=== PATIENT | female | born 1935 | race Caucasian/White ===

== ENCOUNTER → 2023-07-16 10:46 | Outpatient (REF) | payer OTHER, SELFPAY | LOC: RAD 10:46 | PROVIDERS: ATTENDING PHYSICIAN Nuclear Medicine Nuclear Cardiology; FAMILY PHYSICIAN Family Medicine | DX: I21.9 Acute myocardial infarction, unspecified (principal); I25.10 Atherosclerotic heart disease of native coronary artery without angina pectoris; Z95.1 Presence of aortocoronary bypass graft; I73.9 Peripheral vascular disease, unspecified | CPT/HCPCS: 93922; 93925 ==

== ENCOUNTER 2024-02-06 19:25 | Emergency (ER) | payer OTHER, SELFPAY ==
[2024-02-06 19:28] VITALS: BP 195/88
[2024-02-06 19:51] VITALS: BP 181/84
--- NOTE | 2024-02-06 20:02 | ED.GENMED ---
History of Present Illness
General
Chief Complaint: Blood Pressure Problem
Time Seen by Provider: 02/06/24 19:38
History of Present Illness
History of Present Illness:
Patient is a 89-year-old woman with history of hypertension, hyperlipidemia, CAD presenting to the emergency department with elevated blood pressure. Patient states that around 6 PM she had an episode of vertigo. She took a meclizine which
resolved the vertigo. She then took her blood pressure during the episode and it was elevated in the 190s. She took it again and then increase to the 200s. It did not come down and around 7 PM about an hour prior to arrival to talk to her primary
care doctor who told him to come to the emergency department for further evaluation. Patient at this time feels completely back to her baseline. She states that the episode of vertigo was similar to her prior that resolved with meclizine. She has
been having some vague back discomfort and bilateral chest discomfort. She did go to her PCP and was found to have a compression fracture. The pain is not exertional. No shortness of breath. She also has been feeling more tired. She believes
that she is on multiple medications that would make her drowsy. On review of her medication list it does appear that she is on quite a few sedating medications. No numbness tingling. No dizziness. No back pain at this time.
Phy Exam
Physical Exam
Physical Exam:
GENERAL: in no acute distress
HEENT: normocephalic, extraocular movements intact, moist oral mucosa
NECK: normal inspection
Back: No midline spinal tenderness
RESPIRATORY: no respiratory distress, clear to auscultation bilaterally
CARDIOVASCULAR: regular rate and rhythm
ABDOMEN/: soft, non-distended, non-tender to palpation, no rebound or guarding
EXTREMITIES: non-tender, no edema/swelling
NEUROLOGIC: awake and alert, moves all extremities
SKIN: warm
Course
Orders/Labs/Results
Orders:
Orders
02/06/24 19:32
EKG [Electrocardiogram (*1)] Urgent
Reason for Study: Chest Pain
EKG- Treatment ONCE
02/06/24 20:31
Basic Metabolic Panel Urgent
Complete Blood Count/With Diff Urgent
Troponin I Urgent
Abnormal Lab Results
02/06/24
20:31
Monocytes % 9.8 H %
(1.7-9.3)
Potassium 5.2 H mmol/L
(3.5-5.1)
BUN 32 H mg/dl
(7-17)
Creatinine 1.1 H mg/dL
(0.6-1.0)
02/06/24 20:31
02/06/24 20:31
Vital Signs
Initial and Last Documented VS:
Initial Vital Signs
Temp Pulse Resp BP Pulse Ox
98 F 82 14 195/88 97
02/06/24 19:28 02/06/24 19:28 02/06/24 19:28 02/06/24 19:28 02/06/24 19:28
Last Documented Vital Signs
Temp Pulse Resp BP Pulse Ox
98 F 63 15 181/69 99
02/06/24 19:28 02/06/24 20:51 02/06/24 20:51 02/06/24 20:51 02/06/24 20:51
MDM/Problems Addressed
Differential Diagnosis Includes:
Patient is a 89-year-old woman with history of hypertension, hyperlipidemia, CAD, anxiety presenting to the emergency department with elevated blood pressure. Vitals here notable for blood pressure of 195/88 and exam is reassuring. At this time
her elevated blood pressure she is asymptomatic from. She does state that she was having worsening pain earlire today which certainly could cause her blood pressure to be elevated. She is only on metoprolol for her blood pressure. She does see
her gate cutter and PCP for monitoring as she did have history of orthostatic hypotension which is why she is not on an additional agent. She has been having vague back pain and chest pain. EKG per my interpretation with flattening of the lateral
T waves. There is no prior to compare to. Given the vague symptoms plus the EKG will check troponin. Given patient's fatigue will check anemia as well as electrolytes and kidney function. Patient was educated on discussing with her primary care
doctor about the multiple medications such as tramadol, Ativan, Seroquel and to see if they could be decreased given the excessive sleepiness during the daytime.
*Critical Care Note
Total Time (30-74mins, 75-104mins- exclusive of procedures): Not Applicable
Update Note
Update Note:
Blood work reassuring. Given that the pain has been ongoing for more than a day I do not need to obtain delta troponin. Patient advised to follow-up with PCP and cardiology. Will discharge at this time.
ED Attending Note
-
Portions of this chart may have been created with voice recognition software.� Occasional wrong word or��sound alike� substitutions may have occurred due to the inherent limitations of voice recognition software.
Discharge Plan
Departure
Patient Disposition: Home (Routine Discharge)
Date of Disposition: 02/06/24
Time of Disposition: 21:18
Patient with high blood pressure during this ER visit?: Yes
Discharge Problem:
Hypertension
Instructions: High Blood Pressure (DC)
Prescriptions:
No Action
quetiapine 25 MG tablet
25 mg PO HS
furosemide 40 MG tablet
40 mg PO DAILY PRN (Reason: swelling)
acetaminophen [Tylenol Extra Strength] 500 MG tablet
500 mg PO PRN PRN (Reason: pain)
calcium carbonate [Antacid (calcium carbonate)] 1 TABLET tablet,chewable
1 tab PO PRN PRN (Reason: heartburn)
metoprolol succinate 25 MG tablet extended release 24 hr
25 mg PO QPM
sertraline 50 MG tablet
50 mg PO DAILY
Gaviscon Es
1 tab PO PRN PRN (Reason: heartburn)
Vitamin B Complex With B12
1 tab PO DAILY
Vitamin D3
1 tab PO DAILY
Woman's Rogaine
1 applic topical BID
hydrocodone-acetaminophen [[place]] 1 EACH tablet
1 ea PO Q6HPRN PRN (Reason: pain) 10 Days Qty: 30 0RF
cephalexin [Keflex] 500 MG capsule
500 mg PO Q6 4 Days Qty: 16 0RF
lorazepam 0.5 MG tablet
0.5 mg PO Q8HPRN PRN (Reason: pain/spasm) Qty: 40 0RF
clopidogrel 75 MG tablet
75 mg PO DAILY Qty: 1 0RF
Rx Instructions:
RESUME 02/03
quetiapine [Seroquel] 25 mg Tablet
12.5 mg PO HS
atorvastatin 40 mg Tablet
40 mg PO HS
metoprolol succinate 50 mg Tablet Extended Release 24 Hr
50 mg PO DAILY
prochlorperazine maleate 5 mg Tablet
5 mg PO TID PRN (Reason: nausea/migraine)
meclizine 12.5 mg Tablet
12.5 mg PO TID PRN (Reason: dizziness)
famotidine 20 mg Tablet
20 mg PO BID
buspirone [BuSpar] 10 mg Tablet
10 mg PO BID
nitroglycerin 0.4 mg Tablet, Sublingual
0.4 mg SUBLINGUAL Q1HPRN PRN (Reason: chest pain)
furosemide [Lasix] 20 mg Tablet
20 mg PO PRN PRN (Reason: fluid retention)
sertraline 50 mg Tablet
50 mg PO DAILY
ezetimibe [Zetia] 10 mg Tablet
10 mg PO DAILY
ranolazine 500 mg Tablet Extended Release 12 Hr
500 mg PO BID
aspirin 81 mg Capsule
81 mg PO DAILY
tramadol 25 mg Tablet
12.5 mg PO PRN PRN (Reason: severe pain )
Referrals:
Sully Leija MD [Family Provider] -
Interventions
Interventions:
*Risk Screen - Suicide Last Done: 02/06/24 19:28
*General Assessment Last Done: 02/06/24 19:28
*Neglect/Abuse Screening Last Done: 02/06/24 19:28
ED- Cardiac Assessment Last Done: 02/06/24 20:34
ED- Neurological Assessment Last Done: 02/06/24 20:34
ED- Pulmonary Assessment Last Done: 02/06/24 20:34
Discharge Date and Time
Print Language: UKRAINIAN
[2024-02-06 20:37] LABS: % Basophils 0.4 % (0-2); % Eosinophils 0.9 % (0-6); % Immature Granulocytes 0.4 % (0-0.5); % Lymphocytes 30.9 % (20.5-51.1); % Monocytes 9.8 % (1.7-9.3); % Neutrophils 57.6 % (42.2-75.2); Absolute Eosinophils 0.1 10^3/uL (0-0.7); Absolute Lymphocytes 1.7 10^3/uL (1.2-3.4); Absolute Monocytes 0.5 10^3/uL (0.1-0.6); Absolute Neutrophils 3.2 10^3/uL (1.4-6.5); Hematocrit 38.6 % (37.0-47.0); Hemoglobin 12.9 g/dL (12.0-16.0); Mean Corp Hgb Conc. 33.4 g/dL (33.0-37.0); Mean Corpuscular Hgb 29.3 pg (27.0-31.0); Mean Corpuscular Volume 87.5 fL (81.0-99.0); Mean Platelet Volume 9.7 fL (7.4-10.4); Nucleated Red Blood Cells % 0 %; Platelet Count 219 10^3/uL (130-400); Red Blood Cell Count 4.41 10^6/uL (4.20-5.40); Red Cell Dist. Width 14.1 % (11.5-14.5); White Blood Cell Count 5.5 10^3/uL (4.8-10.8)
[2024-02-06 20:51] VITALS: BP 181/69
[2024-02-06 21:00] VITALS: BP 185/71
[2024-02-06 21:13] LABS: Blood Urea Nitrogen 32 mg/dl (7-17); Calcium 9.6 mg/dl (8.4-10.2); Carbon Dioxide 26 mmol/L (22-30); Chloride 99 mmol/L (98-107); Glucose 94 mg/dl (70-99); Potassium 5.2 mmol/L (3.5-5.1); Sodium 137 mmol/L (135-145); eGFR 48.63
[2024-02-06 21:15] LABS: Troponin I 0.021 ng/ml
== END 2024-02-06 21:33 | disposition home or self-care (01) ==
LOC: EMR 19:25
PROVIDERS: EMERGENCY PHYSICIAN Student in an Organized Health Care Education/Training Program; FAMILY PHYSICIAN Family Medicine
DX: I10 Essential (primary) hypertension (principal); R07.89 Other chest pain; R42 Dizziness and giddiness; M54.9 Dorsalgia, unspecified; R53.83 Other fatigue; E78.5 Hyperlipidemia, unspecified; I25.10 Atherosclerotic heart disease of native coronary artery without angina pectoris; F41.9 Anxiety disorder, unspecified; Z79.82 Long term (current) use of aspirin; Z79.899 Other long term (current) drug therapy; Z88.6 Allergy status to analgesic agent; Z91.041 Radiographic dye allergy status; Z91.040 Latex allergy status; Z88.8 Allergy status to other drugs, medicaments and biological substances; Z91.048 Other nonmedicinal substance allergy status
CPT/HCPCS: 99283; 80048; 84484; 85025; 93005

== ENCOUNTER → 2024-04-03 15:03 | Outpatient (REF) | payer OTHER, SELFPAY | LOC: RCS 15:03 | PROVIDERS: ATTENDING PHYSICIAN Nuclear Medicine Nuclear Cardiology; FAMILY PHYSICIAN Family Medicine | DX: I25.10 Atherosclerotic heart disease of native coronary artery without angina pectoris (principal) | CPT/HCPCS: 93306 ==

== ENCOUNTER 2024-07-05 07:29 | Inpatient (IN) | payer OTHER, SELFPAY ==
[2024-07-05] VITALS (13 sets, daily range): BP systolic 93–168; BP diastolic 45–78; PULSE 69–87; BMI 28.3
[2024-07-05] MEDS: ATIVAN 1 MG IV ×3 (04:58→05:45)
[2024-07-05 05:09] LABS: % Basophils 0.5 % (0-2); % Eosinophils 0.8 % (0-6); % Immature Granulocytes 0.5 % (0-0.5); % Lymphocytes 35.6 % (20.5-51.1); % Neutrophils 53.6 % (42.2-75.2); Absolute Eosinophils 0.1 10^3/uL (0-0.7); Absolute Lymphocytes 2.3 10^3/uL (1.2-3.4); Absolute Monocytes 0.6 10^3/uL (0.1-0.6); Absolute Neutrophils 3.5 10^3/uL (1.4-6.5); Hematocrit 38.3 % (37.0-47.0); Hemoglobin 12.4 g/dL (12.0-16.0); Mean Corp Hgb Conc. 32.4 g/dL (33.0-37.0); Mean Corpuscular Hgb 30.3 pg (27.0-31.0); Mean Corpuscular Volume 93.6 fL (81.0-99.0); Mean Platelet Volume 9.5 fL (7.4-10.4); Nucleated Red Blood Cells % 0 %; Platelet Count 213 10^3/uL (130-400); Red Blood Cell Count 4.09 10^6/uL (4.20-5.40); Red Cell Dist. Width 13.4 % (11.5-14.5); White Blood Cell Count 6.5 10^3/uL (4.8-10.8)
--- NOTE | 2024-07-05 05:14 | ED.GENMED ---
History of Present Illness
General
Chief Complaint: Change in Mental Status
Source: patient, family ( present at the bedside) and ambulance crew
Exam Limitations: altered mental status
Time Seen by Provider: 07/05/24 05:04
Nursing documentation reviewed up to this point in time: agreed with
History of Present Illness
History of Present Illness:
89-year-old female brought in from home by EMS for confusion. According to patient has been having a headache for 2 days. She had a Mohs procedure done earlier in the week and had a headache shortly thereafter. Last evening patient went
to bed having a headache much of the day. states she went to bed around 6 PM. He she awakened around 10 PM and gave her her medications. He had no indication at that point that she confused. Around 3 in the morning patient
awakened confused, patient thought she sounded like she was slurring her speech. He called 911. Patient does state that he has been to the emergency department with her many times for similar complaints. He states that they usually find nothing,
and diagnosed her with complicated migraine.
If applicable-neuro sx onset
Onset of symptoms known: No
Date of onset of symptoms: 07/05/24
Time of onset of symptoms: 00:00
Time pt last seen normal is known: Yes
Date last time pt seen normal: 07/04/24
Time last time pt seen normal: 22:00 (Per he gave her evening meds at 10 PM and she seemed normal. Next known contact, patient was confused around 4 in the morning. noticed some slurring)
Review of Systems
Review of Systems
Allergies reviewed?: Yes
Other source history: family
All Other Systems: ROS reviewed and negative except as documented in HPI and ROS
Constitutional: Reports no symptoms
EENT: Reports no symptoms
Respiratory: Reports no symptoms
Cardiac: Reports no symptoms
ABD/GI: Reports no symptoms
: Reports no symptoms
Musculoskeletal: Reports no symptoms
Skin: Reports no symptoms
Neurological: Reports headache
Endocrine: Reports no symptoms
Hematologic/Lymphatic: Reports no symptoms
Psychiatric: Reports anxiety
Phy Exam
General Physical Exam
General Presentation: moderate distress
General age: appears older than age
General Skin: warm and dry
General Habitus: normal
General Mental: anxious and confused
General Hydration: appears well hydrated
Cardiovascular Exam
Cardiovascular Exam: regular rate/rhythm
Pulmonary Exam
Pulmonary Exam: lungs clear and no respiratory distress
Neurological Exam
Neurological Exam: no motor deficits, slurred speech and other (Confusion)
Skin Exam
Skin Exam: normal color and warm/dry
Psychiatric Exam
Psychiatric Exam: normal mood/affect and agitated
Course
Orders/Labs/Results
Orders:
Orders
07/05/24 04:55
Complete Blood Count/With Diff Urgent
Comprehensive Metabolic Panel Urgent
Lipase Urgent
07/05/24 04:56
Lorazepam [Ativan] 2 mg .ROUTE .STK-MED ONE
07/05/24 04:58
Lorazepam [Ativan] 1 mg IV NOW STA
07/05/24 05:11
Abdomen/Pelvis wo Contrast CT [CT Abd/pelvis Wo Iv Cont] Urgent
Comment:
Reason For Exam: flank pain
CT HEAD STROKE ALERT W/o Cont Urgent
Comment:
Reason For Exam: confusion
07/05/24 05:21
Lorazepam [Ativan] 2 mg .ROUTE .STK-MED ONE
07/05/24 05:25
Lorazepam [Ativan] 1 mg IV NOW STA
Morphine Sulfate 4 mg .ROUTE .STK-MED ONE
07/05/24 05:32
Lorazepam [Ativan] 1 mg IV NOW STA
07/05/24 05:46
Morphine Sulfate 4 mg IV NOW STA
07/05/24 06:50
Admit/Transfer Patient As Directed
Co-Sign Provider:
Level of Care: Inpatient admission
Assign to:: Telemetry
Physician / Group: Bryce
Diagnosis: Altered Mental Status, Complicated Migraine, CBD Stones
Reason for Telemetry: CVA/TIA
Date to Stop Telemetry: 07/08/24
Time to Stop Telemetry: 11:00
Reason for Hospitalization: Altered Mental Status, Complicated Migraine, CBD Stones
Expected length of stay greater than two midnights?: Yes
ELOS- Estimated Length of Stay in days: 3
I certify the patient meets the requirements for IP care: Yes
PRN Pain Medication Management As Directed
May give lesser potent ordered pain med per pt: Yes
preference::
Protocol:: Medication orders for pain may be administered in a
manner that supports deferring to patient preference
when the pt is:
- Requesting an ordered lesser potent pain medication.
Least to most potent pain medications are defined
as: acetaminophen < NSAID < tramadol < opioids
(morphine, oxycodone, hydromorphone).
- Requesting a lesser dose of the same medication IF
ORDERED.
- Requesting a less intrusive route of administration
if both routes are prescribed by the provider (PO <
IV).
07/05/24 06:54
Code Status As Directed
Resuscitation Status: Full Code
07/08/24 11:00
DC Protocol for Telemetry ONCE
Abnormal Lab Results
07/05/24
04:55
RBC 4.09 L 10^6/uL
(4.20-5.40)
MCHC 32.4 L g/dL
(33.0-37.0)
BUN 27 H mg/dl
(7-17)
Creatinine 1.2 H mg/dL
(0.6-1.0)
Glucose 102 H mg/dl
(70-99)
07/05/24 04:55
07/05/24 04:55
Vital Signs
Initial and Last Documented VS:
Initial Vital Signs
Temp Pulse Resp Pulse Ox
98.6 F 86 18 97
07/05/24 04:33 07/05/24 04:33 07/05/24 04:33 07/05/24 04:33
Last Documented Vital Signs
Temp Pulse Resp BP Pulse Ox
98.6 F 72 19 140/54 96
07/05/24 04:33 07/05/24 06:00 07/05/24 06:00 07/05/24 06:00 07/05/24 05:45
*Pulse Oximetry
Patient hypoxic: no
*Critical Care Note
Total Time (30-74mins, 75-104mins- exclusive of procedures): 30
comment:
Critical care statement: A total of 30 minutes of critical care time was provided for this patient. This time is separate from time utilized to perform the aforementioned documented procedures. Aggregate critical care time includes only time
during which I was engaged in work directly related to the patient's care, as described above, whether at the bedside or elsewhere in the Emergency Department.
ED Attending Note
-
Portions of this chart may have been created with voice recognition software.� Occasional wrong word or��sound alike� substitutions may have occurred due to the inherent limitations of voice recognition software.
Discharge Plan
Departure
Patient Disposition: Admit
Date of Disposition: 07/05/24
Time of Disposition: 07:19
Admit to: Telemetry
Presentation/result/management discussed w/ accepting MD/DO: Hospitalist
Patient with high blood pressure during this ER visit?: Yes
Condition: Good
Discharge Problem:
Altered mental status, Migraine, Postoperative Mohs
Prescriptions:
No Action
quetiapine 25 MG tablet
25 mg PO HS
furosemide 40 MG tablet
40 mg PO DAILY PRN (Reason: swelling)
acetaminophen [Tylenol Extra Strength] 500 MG tablet
500 mg PO PRN PRN (Reason: pain)
calcium carbonate [Antacid (calcium carbonate)] 1 TABLET tablet,chewable
1 tab PO PRN PRN (Reason: heartburn)
metoprolol succinate 25 MG tablet extended release 24 hr
25 mg PO QPM
sertraline 50 MG tablet
50 mg PO DAILY
Gaviscon Es
1 tab PO PRN PRN (Reason: heartburn)
Vitamin B Complex With B12
1 tab PO DAILY
Vitamin D3
1 tab PO DAILY
Woman's Rogaine
1 applic topical BID
hydrocodone-acetaminophen [[place]] 1 EACH tablet
1 ea PO Q6HPRN PRN (Reason: pain) 10 Days Qty: 30 0RF
cephalexin [Keflex] 500 MG capsule
500 mg PO Q6 4 Days Qty: 16 0RF
lorazepam 0.5 MG tablet
0.5 mg PO Q8HPRN PRN (Reason: pain/spasm) Qty: 40 0RF
clopidogrel 75 MG tablet
75 mg PO DAILY Qty: 1 0RF
Rx Instructions:
RESUME 02/03
quetiapine [Seroquel] 25 mg Tablet
12.5 mg PO HS
atorvastatin 40 mg Tablet
40 mg PO HS
metoprolol succinate 50 mg Tablet Extended Release 24 Hr
50 mg PO DAILY
prochlorperazine maleate 5 mg Tablet
5 mg PO TID PRN (Reason: nausea/migraine)
meclizine 12.5 mg Tablet
12.5 mg PO TID PRN (Reason: dizziness)
famotidine 20 mg Tablet
20 mg PO BID
buspirone [BuSpar] 10 mg Tablet
10 mg PO BID
nitroglycerin 0.4 mg Tablet, Sublingual
0.4 mg SUBLINGUAL Q1HPRN PRN (Reason: chest pain)
furosemide [Lasix] 20 mg Tablet
20 mg PO PRN PRN (Reason: fluid retention)
sertraline 50 mg Tablet
50 mg PO DAILY
ezetimibe [Zetia] 10 mg Tablet
10 mg PO DAILY
ranolazine 500 mg Tablet Extended Release 12 Hr
500 mg PO BID
aspirin 81 mg Capsule
81 mg PO DAILY
tramadol 25 mg Tablet
12.5 mg PO PRN PRN (Reason: severe pain )
Referrals:
UNKNOWN - PT DOES,NOT KNOW [Family Provider] -
Interventions
Interventions:
*Risk Screen - Suicide Last Done: 07/05/24 04:44
*General Assessment Last Done: 07/05/24 04:33
*Neglect/Abuse Screening Last Done: 07/05/24 04:33
*ED COVID-19 Vaccine History Last Done: 07/05/24 04:33
ED- Neurological Assessment Last Done: 07/05/24 05:12
ED Swallowing Screen Last Done: 07/05/24 05:12
Discharge Date and Time
Print Language: GERMAN
[2024-07-05 05:42] LABS: ALT (SGPT) 24 U/L (0-35); AST (SGOT) 34 U/L (14-36); Albumin 4.1 g/dl (3.5-5.0); Alkaline Phosphatase 86 U/L (38-126); Blood Urea Nitrogen 27 mg/dl (7-17); Calcium 9.5 mg/dl (8.4-10.2); Carbon Dioxide 26 mmol/L (22-30); Chloride 101 mmol/L (98-107); Estimated Creatinine Clearance 30 ml/min; Glucose 102 mg/dl (70-99); Lipase 82 U/L (23-300); Sodium 135 mmol/L (135-145); Total Bilirubin 1.3 mg/dl (0.2-1.3); Total Protein 6.8 g/dl (6.3-8.2); eGFR 43.81
[2024-07-05] MEDS: MORPHINE SULFATE 4 MG IV (05:46)
--- NOTE | 2024-07-05 06:58 | HPS.HSE ---
Family Physician
-
Family Physician: NOT KNOW UNKNOWN - PT DOES
Chief Complaint
-
Slurred speech / confusion
History of Present Illness
Patient is an 89y F with PMH significant for ASCVD, hypertension and complex migraines who presents to ED for evaluation of slurred speech, confusion and 'discomfort'. History obtained entirely from at the bedside as patient is currently
sleeping / sedate following pain medication.
states that patient developed her typical migraine on Wednesday AM. This consists of headache, vision changes and slurred / sluggish speech.
She underwent L cheek Mohs surgery on Wednesday afternoon. There was bleeding from this site late Wednesday and they were in the ED at [facility] all night Wednesday into Wednesday for hemostasis (additional sutures placed).
states that patient slept for most of the day today. She woke around 11AM and then went back to bed around 6PM.
He woke her at 10PM to given her PM medications and she was speaking normally / seemed at baseline at that time.
Around 4AM today, woke to patient thrashing around in the bed. He notes that she seemed to be in pain - though he could not determine location of the discomfort. Patient again had slurred, incomprehensible speech and seemed confused.
They presented to the ED for further evaluation.
Patient received morphine in the ED with improvement in her discomfort and was sleeping comfortably at the time of my examination.
Medical History
Past Medical History
Past Medical History: Reports Other
Additional Past Medical History:
ASCVD
Complex Migraines
Hypertension
CKD III
Lung Cancer s/p Surgery, Chemo, XRT
Skin Cancer
Past Surgical History: Reports Other
Additional Past Surgical History:
Left Upper Lobectomy
CABG X 3
Mohs Surgery
Cholecystectomy
Lumbar Hemilaminectomy
Social History
Tobacco: Former Smoker (Quit smoking in her 50s. Approx 20 pack years total use.)
Alcohol: None
Drug: None
Family History
Family History: Not pertinent
Allergies / Home Medications
Allergies reflects when Allergies were last updated in [facility].
Home Medications with original date entered in [facility]
Allergy/Medication List:
cannot confirm all meds at present. Will need formal med rec with pharmacy in the AM.
If medication reconciliation has not been performed, why?: Medication List N/A
Review of Systems
-
History Source: Patient
A 12 point ROS was completed and negative except as noted: Yes
Constitutional: Reports Fatigue; Denies Fever or Chills
Respiratory: Denies Cough or Trouble Breathing
Cardiac: Denies Chest Pain or Palpitations
Abdomen/GI: Reports Abdominal Pain; Denies Nausea, Vomiting or Diarrhea
: Denies Flank Pain or Bleeding
Musculoskeletal: Reports Edema (chronic / unchanged)
Neurological: Reports Headache and Other (slurred speech); Denies Dizzy
Psych: Reports Anxiety; Denies Depression
Physical Exam
Vital Signs
Vital Signs
Temp Pulse Resp BP Pulse Ox
98.6 F 72 19 140/54 96
07/05/24 04:33 07/05/24 06:00 07/05/24 06:00 07/05/24 06:00 07/05/24 05:45
Physical Exam
General: Other (89y F currently sleeping comfortably.)
HEENT: Moist mucous membranes and PERRLA
Respiratory: Clear; No Wheezes, Rales or Rhonchi
Cardiac: S1/S2, Regular Rhythm and Murmur (II/ JOI)
GI: Soft, Non Distended, Normal Bowel Sounds and Other (Pos tenderness epigastric and RUQ areas. No rebound. Pos BS.)
Musculoskeletal: No Clubbing, No Cyanosis and Other (R > L LE edema.)
Laboratory Results
-
07/05/24 04:55
07/05/24 04:55
Laboratory Results
Total Bilirubin 1.3 mg/dl (0.2-1.3) 07/05/24 04:55
AST 34 U/L (14-36) 07/05/24 04:55
ALT 24 U/L (0-35) 07/05/24 04:55
Alkaline Phosphatase 86 U/L (38-126) 07/05/24 04:55
Lipase 82 U/L (23-300) 07/05/24 04:55
Impression/Plan
-
A/P: Patient is an 89y F with PMH significant for complicated migraine, ASCVD and prior cholecystectomy who presents to ED for evaluation of speech abnormality, confusion and distress.
CVA / TIA v Complicated Migraine
- Admit for further evaluation and treatment.
- Multiple prior episodes per all determined to be due to migraine.
- Suspect that this is similar - potentially triggered by GI symptoms (see below).
- Follow neurologic exam for any changes / focality.
- PT / OT / Speech evaluations.
- Neurology consult.
- MRI brain this AM.
- Follow for any new / worsening symptoms.
- Continue current med regimen for ASCVD including DAPT, etc.
CBD Stones / Sludge
- CT A/P done in the ED shows evidence of stones / sludge layering in the CBD.
- LFTs are unremarkable. Afebrile / non-toxic.
- notes about 3-4 weeks of intermittent R-sided abdominal pain complaints.
- No N/V. No stool changes.
- MRCP for further evaluation.
- GI consult for additional recommendations.
ASCVD
Benign Hypertension
- Stable. No chest pain or dyspnea reported.
- BP elevated on initial arrival - likely due to pain - much better after pain control / morphine.
- Continue current CV med regimen including DAPT, etc.
CKD III
- Stable. Renal function at / near known baseline.
- Follow for any changes.
Anxiety / Depression
- Stable. Continue current medications - adjust as needed once formal med rec completed.
DVT Prophylaxis: SCDs
Code Status: Full
[2024-07-05 11:20] LABS: TSH Reflex To Free T4 4.91 uIU/ml (0.47-4.68)
[2024-07-05] MEDS: ASPIR LOW (ENTERIC COATED) 81 MG PO (11:39)
[2024-07-05] MEDS: ZOLOFT 100 MG PO (11:39)
[2024-07-05] MEDS: BUSPAR 10 MG PO ×2 (11:39→19:49)
[2024-07-05] MEDS: PLAVIX 75 MG PO (11:39)
[2024-07-05] MEDS: RANEXA EXTENDED RELEASE 500 MG PO ×2 (11:39→19:49)
[2024-07-05] MEDS: TOPROL XL 50 MG PO (11:41)
[2024-07-05 11:47] LABS: Free T4 1.11 ng/dl (0.78-2.19); Glycohemoglobin (HgbA1c) 5.5 % (4.0-5.6)
--- NOTE | 2024-07-05 13:01 | PTOTSP ---
Dysphagia Evaluation
Patient is at an acute elevated risk for dysphagia and aspiration given lethargy related to recent medications and changes to mentation of unknown etiology. Patient endorsed some mild chronic signs of dysphagia without signs concerning for
aspiration complication prior to admission. Consider diet below only when awake/alert.
Recommend:
1. Regular solids, Thin Liquids via SINGLE sips - when medically cleared (currently on clear liquid diet)
2. Strategies: PO only when awake/alert, upright to 90 degrees, full supervision and assistance, small single sips/bites, slow rate
3. Medications whole in puree (baseline method)
4. Oral care 3x daily
5. Dysphagia tx at the acute care level for education, instruction in compensations, and to determine if instrumental swallowing assessment warranted
6. Speech/language/cognitive evaluation as appropriate pending results of neurological work up (i.e., differential dx of CVA vs TIA vs complex migraine)
--- NOTE | 2024-07-05 13:48 | CON.NEURO ---
Neuro Assessment/Plan
Assessment
most likely confusion and slurred speech due to abdominal discomfort
doubt stroke, she is already on ASA 81, Plavix 75, and Lipitor 40.
Even if she did have a stroke, she should still continue these same meds
Plan
cancel brain MRI
Consultation
Order
Date of Consultation: 07/05/24
Requesting Provider: Colby Wu
Reason for Consult: confusion, lethargy
Subjective/Objective
Subjective Data
Date of Service: July 05, 2024
From H&P:
Patient is an 89y F with PMH significant for ASCVD, hypertension and complex migraines who presents to ED for evaluation of slurred speech, confusion and 'discomfort'. History obtained entirely from at the bedside as patient is currently
sleeping / sedate following pain medication.
states that patient developed her typical migraine on Wednesday AM. This consists of headache, vision changes and slurred / sluggish speech.
She underwent L cheek Mohs surgery on Wednesday afternoon. There was bleeding from this site late Wednesday and they were in the ED at [facility] all night Wednesday into Wednesday for hemostasis (additional sutures placed).
states that patient slept for most of the day today. She woke around 11AM and then went back to bed around 6PM.
He woke her at 10PM to given her PM medications and she was speaking normally / seemed at baseline at that time.
Around 4AM today, woke to patient thrashing around in the bed. He notes that she seemed to be in pain - though he could not determine location of the discomfort. Patient again had slurred, incomprehensible speech and seemed confused.
They presented to the ED for further evaluation.
Patient received morphine in the ED with improvement in her discomfort and was sleeping comfortably at the time of my examination.
Found to have gallstones, sludge layering in the CBD
to me, she is sleeping lightly, and awakens easily to voice, denies having headache, correctly told me her age, and went back to sleep.
Objective Data
Vital Signs
Temp Pulse Resp BP Pulse Ox
37.0 C 67 16 139/51 96
07/05/24 04:33 07/05/24 13:15 07/05/24 13:15 07/05/24 13:00 07/05/24 13:15
Lab Results
07/05/24 04:55
07/05/24 04:55
Sodium 135 mmol/L (135-145) 07/05/24 04:55
Potassium 5.0 mmol/L (3.5-5.1) 07/05/24 04:55
BUN 27 mg/dl (7-17) H 07/05/24 04:55
Glucose 102 mg/dl (70-99) H 07/05/24 04:55
Calcium 9.5 mg/dl (8.4-10.2) 07/05/24 04:55
Patient Allergies
adhesive tape Allergy (Verified 02/01/19 08:02)
Rash
aspirin Allergy (Verified 02/01/19 08:02)
Stomach burning
esomeprazole [From Nexium] Allergy (Verified 02/01/19 08:02)
Unknown
gabapentin Allergy (Verified 02/01/19 08:02)
Stroke-like symptoms
Iodinated Contrast Media Allergy (Verified 02/01/19 08:02)
Stroke-like symptoms
nitrofurantoin Allergy (Verified 02/01/19 08:02)
Unknown
nitroglycerin Allergy (Verified 02/01/19 08:02)
Stroke-like symptoms
latex Allergy (Uncoded 02/01/19 08:02)
Rash
Physical Exam
-
lethargic, awakens easily to voice
correctly tells me her age and moves all extremities then drifts back to sleep
Medications
-
Active Medications
Generic Name Dose Route Start Last Admin
Trade Name Freq PRN Reason Stop Dose Admin
Acetaminophen 650 mg 07/05/24 10:04
Acetaminophen 325 Mg Tablet PO 08/02/24 10:03
Q4HPRN PRN
Mild Pain / Temp > 101
Aspirin 81 mg 07/05/24 12:00 07/05/24 11:39
Aspirin 81 Mg (Enteric Coated) Tablet PO 08/02/24 11:59 81 mg
DAILY JENNIFER Administration
Buspirone HCl 10 mg 07/05/24 10:04 07/05/24 11:39
Buspirone 10 Mg Tablet PO 08/02/24 10:03 10 mg
BID JENNIFER Administration
Clopidogrel Bisulfate 75 mg 07/05/24 10:04 07/05/24 11:39
Clopidogrel 75 Mg Tablet PO 08/02/24 10:03 75 mg
DAILY JENNIFER Administration
Metoprolol Succinate 50 mg 07/05/24 10:04 07/05/24 11:41
Metoprolol 50 Mg Extended Release Tablet PO 08/02/24 10:03 50 mg
DAILY JENNIFER Administration
Quetiapine Fumarate 12.5 mg 07/05/24 22:00
Quetiapine 25 Mg Tablet PO 08/02/24 21:59
HS JENNIFER
Ranolazine 500 mg 07/05/24 10:04 07/05/24 11:39
Ranolazine 500 Mg Extended Release Tablet PO 08/02/24 10:03 500 mg
BID JENNIFER Administration
Sertraline HCl 100 mg 07/05/24 12:00 07/05/24 11:39
Sertraline 100 Mg Tablet PO 08/02/24 11:59 100 mg
DAILY JENNIFER Administration
Home Medications
�Medication �Instructions �Recorded
acetaminophen 500 mg tablet 500 mg PO BID 01/27/19
(Tylenol Extra Strength)
quetiapine 25 mg tablet 25 mg PO HS 01/27/19
clopidogrel 75 mg tablet 75 mg PO DAILY #1 tab 02/02/19
atorvastatin 40 mg tablet 40 mg PO QPM 02/06/24
buspirone 10 mg tablet 10 mg PO BID 02/06/24
ezetimibe 10 mg tablet (Zetia) 10 mg PO QPM 02/06/24
famotidine 20 mg tablet 20 mg PO BID 02/06/24
furosemide 20 mg tablet (Lasix) 20 mg PO DAILYPRN PRN fluid 02/06/24
retention
nitroglycerin 0.4 mg sublingual 0.4 mg sublingual [id number] PRN 02/06/24
tablet chest pain
prochlorperazine maleate 5 mg 5 mg PO TIDPRN PRN nausea/migraine 02/06/24
tablet
ranolazine 500 mg tablet,extended 500 mg PO BID 02/06/24
release,12 hr
aluminum hydrox-magnesium carb 95 15 ml PO DAILYPRN PRN heart burn/ 07/05/24
mg-358 mg/15 mL oral suspension acid reflux
amlodipine 5 mg tablet 2.5 mg PO DAILY 07/05/24
aspirin 81 mg tablet,delayed 81 mg PO DAILY 07/05/24
release
cholecalciferol (vitamin D3) 25 25 mcg PO DAILY 07/05/24
mcg (1,000 unit) tablet (Vitamin
D3)
metoprolol succinate 50 mg 50 mg PO HS 07/05/24
tablet,extended release 24 hr
tramadol 50 mg tablet 25 mg PO HSPRN PRN moderate 07/05/24
pain/sleep
vitamin B complex 1 tab PO DAILY 07/05/24
--- NOTE | 2024-07-05 13:56 | CON.GI ---
Consultation
-
Date/Time Consultation Requested: 07/05/24
Date/Time Consultation Performed: 07/05/24
Requesting Provider: Dr. Bowman
Performing Provider: Dr. Schreiber
Reason for Consultation: Bile duct dilation, r/o choledocholithiasis
Medical History
Chief Complaint / HPI
Chief Complaint: R. sided abdominal pain
History of Present Illness:
Mimi Rubalcava is an 89-year-old female with past medical history of complex migraines, hypertension, CKD stage III, lung cancer status post lobectomy, chemo and radiation therapy, hx cholecystectomy (1994), history of right L4-L5 hemilaminectomy,
history of TIA admitted early this morning with concern for acute CVA as she was exhibiting slurred speech and confusion as well as intermittent right flank discomfort over the last few weeks. Reports pain is worse after eating, improves with bowel
movement. Admits to constipation-- admitted to [facility] in March for carotid endarterectomy, states she didnt have a BM for 10 days. After d/c, she has continued to be constipated. Her has been giving her colace, has not tried laxatives. Last
BM was 2 days ago. Admits to some nausea, no vomiting, weight and appetite have remained stable. Denies melena or hematochezia. Reports prior EGDs and Colonoscopies at [facility], does not recall any of the results. She does have a history of complex
migraines, has been reported she developed typical migraine symptoms on Wednesday with headache, vision changes and slurred speech. Around 4 AM this morning patient was thrashing around in bed and appeared to be in pain but unable to localize pain.
Both and grandson at bedside assisting with history.
CT abdomen and pelvis without contrast: Surgically absent gallbladder with mild extrahepatic biliary ductal dilatation, most likely the sequelae of prior cholecystectomy, however, a few tiny stones layering dependently in the common bile duct are
possible. Markedly limited evaluation of the intestinal tract without contrast. Sigmoid diverticulosis. Unable to definitively rule out choledocholithiasis.
Labs: WBC 6.5, hemoglobin 12.4, platelets 213, BUN 27, creatinine 1.2, T. bili 1.3, AST 34, ALT 24, alk phos 86, lipase 82, TSH 4.91, free T41.11
Past Medical History
Past Medical History: Other (ASCVD Complex Migraines Hypertension CKD III Lung Cancer s/p Surgery, Chemo, XRT Skin Cancer)
Past Surgical History: Other (Left Upper Lobectomy CABG X 3 Mohs Surgery Cholecystectomy Lumbar Hemilaminectomy)
Social History
Tobacco: Former Smoker
Alcohol: None
Drug: None
Personal:
Living: With Family
Employment: Not Employed
Family History
Family History: Reviewed & Not Pertinent
Allergies / Home Medications
Allergy/AdvReac Type Severity Reaction Status Date / Time
adhesive tape Allergy Rash Verified 02/01/19 08:02
aspirin Allergy Stomach Verified 02/01/19 08:02
burning
esomeprazole [From Nexium] Allergy Unknown Verified 02/01/19 08:02
gabapentin Allergy Stroke-like Verified 02/01/19 08:02
symptoms
Iodinated Contrast Media Allergy Stroke-like Verified 02/01/19 08:02
symptoms
nitrofurantoin Allergy Unknown Verified 02/01/19 08:02
nitroglycerin Allergy Stroke-like Verified 02/01/19 08:02
symptoms
latex Allergy Rash Uncoded 02/01/19 08:02
�Medication �Instructions �Recorded
acetaminophen 500 mg tablet 500 mg PO BID 01/27/19
(Tylenol Extra Strength)
quetiapine 25 mg tablet 25 mg PO HS 01/27/19
clopidogrel 75 mg tablet 75 mg PO DAILY #1 tab 02/02/19
atorvastatin 40 mg tablet 40 mg PO QPM 02/06/24
buspirone 10 mg tablet 10 mg PO BID 02/06/24
ezetimibe 10 mg tablet (Zetia) 10 mg PO QPM 02/06/24
famotidine 20 mg tablet 20 mg PO BID 02/06/24
furosemide 20 mg tablet (Lasix) 20 mg PO DAILYPRN PRN fluid 02/06/24
retention
nitroglycerin 0.4 mg sublingual 0.4 mg sublingual [id number] PRN 02/06/24
tablet chest pain
prochlorperazine maleate 5 mg 5 mg PO TIDPRN PRN nausea/migraine 02/06/24
tablet
ranolazine 500 mg tablet,extended 500 mg PO BID 02/06/24
release,12 hr
aluminum hydrox-magnesium carb 95 15 ml PO DAILYPRN PRN heart burn/ 07/05/24
mg-358 mg/15 mL oral suspension acid reflux
amlodipine 5 mg tablet 2.5 mg PO DAILY 07/05/24
aspirin 81 mg tablet,delayed 81 mg PO DAILY 07/05/24
release
cholecalciferol (vitamin D3) 25 25 mcg PO DAILY 07/05/24
mcg (1,000 unit) tablet (Vitamin
D3)
metoprolol succinate 50 mg 50 mg PO HS 07/05/24
tablet,extended release 24 hr
tramadol 50 mg tablet 25 mg PO HSPRN PRN moderate 07/05/24
pain/sleep
vitamin B complex 1 tab PO DAILY 07/05/24
Review of Systems
-
History Source: Patient and Family
All other systems: A 12 pt ROS was Negative except as stated above in HPI
Vital Signs
Temp Pulse Resp BP Pulse Ox
98.6 F 67 16 139/51 96
07/05/24 04:33 07/05/24 13:15 07/05/24 13:15 07/05/24 13:00 07/05/24 13:15
Physical Exam
Exam
GENERAL: In no acute distress, appears comfortable
ABDOMEN: +BS; soft, non-tender and non-distended; no rebound or guarding
Results
WBC 6.5 10^3/uL (4.8-10.8) 07/05/24 04:55
Hgb 12.4 g/dL (12.0-16.0) 07/05/24 04:55
Hct 38.3 % (37.0-47.0) 07/05/24 04:55
MCV 93.6 fL (81.0-99.0) 07/05/24 04:55
Plt Count 213 10^3/uL (130-400) 07/05/24 04:55
Absolute Neuts (auto) 3.5 10^3/uL (1.4-6.5) 07/05/24 04:55
Sodium 135 mmol/L (135-145) 07/05/24 04:55
Potassium 5.0 mmol/L (3.5-5.1) 07/05/24 04:55
Chloride 101 mmol/L (98-107) 07/05/24 04:55
Carbon Dioxide 26 mmol/L (22-30) 07/05/24 04:55
BUN 27 mg/dl (7-17) H 07/05/24 04:55
Creatinine 1.2 mg/dL (0.6-1.0) H 07/05/24 04:55
Calcium 9.5 mg/dl (8.4-10.2) 07/05/24 04:55
Total Bilirubin 1.3 mg/dl (0.2-1.3) 07/05/24 04:55
AST 34 U/L (14-36) 07/05/24 04:55
ALT 24 U/L (0-35) 07/05/24 04:55
Alkaline Phosphatase 86 U/L (38-126) 07/05/24 04:55
Lipase 82 U/L (23-300) 07/05/24 04:55
Diagnostic Image Results:
Prior GI Procedures:
EGD:
Colonoscopy:
Assessment / Plan
-
89-year-old female with past medical history of complex migraines, hypertension, CKD stage III, lung cancer status post lobectomy, chemo and radiation therapy, hx cholecystectomy (1994), history of right L4-L5 hemilaminectomy, history of TIA, hx of
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
#RUQ Abdominal Pain
#Extrahepatic biliary ductal dilation
#s/p cholecystectomy
#Constipation
Lack of IV contrast on imaging, making it a somewhat limited exam. Given completely normal LFTs, suspect her mild extrahepatic biliary ductal dilation is normal/expected in setting of prior cholecystectomy and less likely representing
choledocholithiasis. Her intermittent abdominal pain is worse following PO, but improves with defecation. She endorses constipation since hospitalization in March. On further assessment, the pain does sometimes travel to her left side, leading me
to believe the etiology of her discomfort is more likely gas/air trapping in the setting of large stool burden.
Recommendations:
-MRCP to further evaluate biliary tree
-repeat LFTs tomorrow to ensure no increase
-Start bowel regimen-- recommend starting with 2 senokot tonight, can add miralax and uptitrate as necessary if no BM by tomorrow
-trial of Gas-x
Data Reviewed
-
CT Scan: Report Reviewed by me
-
-
Thank you for consultation and allowing me to participate in the patient's care. Please call the supervisor special education GI physician during the after hours with any questions or concerns.
--- NOTE | 2024-07-05 14:14 | W.PN.UPDATE ---
Update Note
Progress Note Update
can hold mri brain as per neuro
f/u mrcp and ua
--- NOTE | 2024-07-05 16:00 | PTCARENOTE ---
Pt received from ED and pulled over from stretcher to bed 331 by unit staff. Pt saying she was at [facility]. NIH 2 presenting with mild aphasia and slurred speech. VSS. no complaints of pain. scab and sutures on R cheek from procedure done
at [facility]. Completed admission questions with at bedside. Pt oriented to unit by this RN. Bed alarm in place due to mild confusion. Call young within reach and pt across from nurses station. No complaints at this time. Will
continue to monitor.
[2024-07-05 16:41] LABS: Urine Albumin Negative (Neg - Trace); Urine Bilirubin Negative (Negative); Urine Character Slightly Cloudy (Clear); Urine Color Yellow; Urine Glucose Negative (Negative); Urine Ketone Negative (Negative); Urine Leukocyte 2+ (Negative); Urine Nitrite Negative (Negative); Urine Occult Blood Negative (Negative); Urine Urobilinogen Negative (Neg - 1+)
[2024-07-05 16:50] LABS: Urine Red Blood Cell 0-2 /HPF (0-2); Urine Squamous Cell 16-20 /LPF (Few)
[2024-07-05 16:51] LABS: Urine Bacteria Many (Negative); Urine White Cell 26-30 /HPF (0-5)
[2024-07-05] MEDS: SEROQUEL 12.5 MG PO (21:42)
[2024-07-05] MEDS: SENOKOT 17.2 MG PO (21:43)
[2024-07-06] VITALS (8 sets, daily range): BP systolic 87–147; BP diastolic 46–102; PULSE 68–78; BMI 28.1
[2024-07-06 06:47] LABS: Hematocrit 33.3 % (37.0-47.0); Hemoglobin 10.9 g/dL (12.0-16.0); Mean Corp Hgb Conc. 32.7 g/dL (33.0-37.0); Mean Corpuscular Hgb 30.4 pg (27.0-31.0); Mean Platelet Volume 10.1 fL (7.4-10.4); Platelet Count 186 10^3/uL (130-400); Red Blood Cell Count 3.58 10^6/uL (4.20-5.40); Red Cell Dist. Width 13.5 % (11.5-14.5); White Blood Cell Count 5.3 10^3/uL (4.8-10.8)
[2024-07-06 07:04] LABS: Blood Urea Nitrogen 27 mg/dl (7-17); Calcium 9.3 mg/dl (8.4-10.2); Carbon Dioxide 25 mmol/L (22-30); Chloride 99 mmol/L (98-107); Estimated Creatinine Clearance 30 ml/min; Glucose 126 mg/dl (70-99); HDL Cholesterol 49 mg/dl; LDL Cholesterol, Calculated 117 mg/dl; Potassium 4.4 mmol/L (3.5-5.1); Sodium 134 mmol/L (135-145); Total Cholesterol 191 mg/dl (50-199); Triglyceride 128 mg/dl (10-149); Very Low Density Lipoprotein 25 mg/dl (0-30); eGFR 43.81
--- NOTE | 2024-07-06 09:00 | PTCARENOTE ---
Patient refused to eat breakfast. Patient states, 'I don't eat breakfast. I have coffee.' Patient also c/o not having at appetite at present.
[2024-07-06] MEDS: MIRALAX 17 GRAMS PO (09:05)
[2024-07-06] MEDS: RANEXA EXTENDED RELEASE 500 MG PO ×2 (09:05→20:41)
[2024-07-06] MEDS: BUSPAR 10 MG PO ×2 (09:09→20:41)
[2024-07-06] MEDS: MILK OF MAGNESIA 30 ML PO (09:10)
[2024-07-06] MEDS: PLAVIX 75 MG PO (09:10)
[2024-07-06] MEDS: ASPIR LOW (ENTERIC COATED) 81 MG PO (09:14)
[2024-07-06] MEDS: ZOLOFT 100 MG PO (09:15)
[2024-07-06] MEDS: TOPROL XL 50 MG PO (09:15)
[2024-07-06] MEDS: ROCEPHIN 1000 MG IV (09:19)
[2024-07-06] MEDS: STERILE WATER FOR INJECTION 10 ML IV (09:20)
[2024-07-06] MEDS: LR 1000 IV (12:15)
--- NOTE | 2024-07-06 14:17 | W.PN.HOSP.TC ---
Today's Communication/Plan
-
Initiate Abx
F/u cultures
Assessment / Plan
Assessment / Plan
Physical Exam
General: NAD, AMS
HEENT: Moist mucous membranes and PERRLA
Respiratory: Clear; No Wheezes, Rales or Rhonchi
Cardiac: S1/S2, Regular Rhythm and Murmur (II/ JOI)
GI: Soft, Non Distended, Normal Bowel Sounds and Other (Pos tenderness epigastric and RUQ areas. No rebound. Pos BS.)
Musculoskeletal: No Clubbing, No Cyanosis and Other (R > L LE edema.)
A/P: Patient is an 89y F with PMH significant for complicated migraine, ASCVD and prior cholecystectomy who presents to ED for evaluation of speech abnormality, confusion and distress.
Acute metabolic encephalopathy
� Suspect secondary UTI
� Start ceftriaxone
� Follow-up cultures
�appreciate neurology consult
- Follow neurologic exam for any changes / focality.
- PT / OT / Speech evaluations.
�No need for brain MRI
- Continue current med regimen for ASCVD including DAPT, etc.
#UTI
� Follow-up cultures
Continue ceftriaxone
CBD Stones / Sludge
- MRCP with no dilation of the CBD
- GI consult for additional recommendations.
ASCVD
Benign Hypertension
- Stable. No chest pain or dyspnea reported.
- BP elevated on initial arrival - likely due to pain - much better after pain control / morphine.
- Continue current CV med regimen including DAPT, etc.
CKD III
- Stable. Renal function at / near known baseline.
- Follow for any changes.
Anxiety / Depression
- Stable. Continue current medications - adjust as needed once formal med rec completed.
Hyponatremia
� Mild
� Continue to monitor
DVT Prophylaxis: HSQ
Code Status: Full
Anticipated Discharge: 24 - 48 hours
Subjective/Interval History
-
Date of Service: July 06, 2024
ams still present
Objective Data
-
Labs:
Laboratory Results
07/06/24
05:56
WBC 5.3
Hgb 10.9 L
Hct 33.3 L
Plt Count 186
Sodium 134 L
Potassium 4.4
Chloride 99
Carbon Dioxide 25
BUN 27 H
Creatinine 1.2 H
Glucose 126 H
Calcium 9.3
Vital Signs:
Vital Signs
Temp Pulse Resp BP Pulse Ox
98.1 F 67 16 147/56 95
07/06/24 12:48 07/06/24 12:48 07/06/24 12:48 07/06/24 12:48 07/06/24 12:48
I&O
07/05/24 07/06/24 07/07/24
06:59 06:59 06:59
Intake Total 420 / 420
Output Total 300 / 300
Balance 120 / 120
Review of Systems
-
History Source: Patient
All other systems: Not reviewed unless documented
Data Reviewed
-
CT Scan: Report Reviewed by me
MRI: Report Reviewed by me
Labs: Labs Reviewed by me
[2024-07-06] MEDS: HEPARIN 5000 UNITS SC ×2 (15:37→23:35)
--- NOTE | 2024-07-06 16:03 | CM ---
Patient seen at bedside with . Per patient they live in a one story home with basement but patient stays on first floor. Patient has a walker and a cane. Patient PCP is KELLEY Leija and she uses the [facility] in [place], and has used the [facility]
from [place] in the past. 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 Patient stated that she was more confused than normal but his plan was to take her home when medically appropriate not SNF. Patient
stated that therapy had seen patient yesterday and he was hoping they would return. Therapy's recommendation is for SNF. CM will continue to follow for discharge planning needs.
Plan; SNF vs VN pending medical treatment plan
--- NOTE | 2024-07-06 17:09 | W.PN.GI.CBS2 ---
Today's Communication / Plan
-
Continue bowel regimen
Antibiotics per primary team for UTI
Assessment / Plan
-
89-year-old female with past medical history of complex migraines, hypertension, CKD stage III, lung cancer status post lobectomy, chemo and radiation therapy, hx cholecystectomy (1994), history of right L4-L5 hemilaminectomy, history of TIA, hx of
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
#RUQ Abdominal Pain
#Extrahepatic biliary ductal dilation
#s/p cholecystectomy
#Constipation
Lack of IV contrast on imaging, making it a somewhat limited exam. Given completely normal LFTs, suspect her mild extrahepatic biliary ductal dilation is normal/expected in setting of prior cholecystectomy and less likely representing
choledocholithiasis. Her intermittent abdominal pain is worse following PO, but improves with defecation. She endorses constipation since hospitalization in March. On further assessment, the pain does sometimes travel to her left side, leading me
to believe the etiology of her discomfort is more likely gas/air trapping in the setting of large stool burden.
Recommendations:
-MRCP shows cystic duct stones no CBD stones.
-LFTs are normal
-Continue bowel regimen with MiraLAX and Senokot
-She did have a bowel movement x2 today
-Also being treated for a UTI
-GI will sign off and will be available as needed
Subjective
Subjective
Date of Service: July 06, 2024
She has been started on antibiotics for UTI
2 Bms today
MRCP negative for CBD stones
Objective
Data Reviewed
Laboratory Data:
Laboratory Results
07/06/24 05:56
07/06/24 05:56
Laboratory Results
Total Bilirubin 1.3 mg/dl (0.2-1.3) 07/05/24 04:55
AST 34 U/L (14-36) 07/05/24 04:55
ALT 24 U/L (0-35) 07/05/24 04:55
Alkaline Phosphatase 86 U/L (38-126) 07/05/24 04:55
Lipase 82 U/L (23-300) 07/05/24 04:55
Vital Signs and I&O:
Vital Signs
Temp Pulse Resp BP Pulse Ox
97.8 F 64 15 139/80 95
07/06/24 15:46 07/06/24 15:46 07/06/24 15:46 07/06/24 15:46 07/06/24 15:46
I&O
07/05/24 07/06/24 07/07/24
06:59 06:59 06:59
Intake Total 420 / 420
Output Total 300 / 300
Balance 120 / 120
07/06/24 MRI
IMPRESSION:
There are a few tiny 3 mm stones within the remnant cystic duct, one proximally and two distally near the low insertion of the cystic duct into the common bile duct, near the ampulla. No discrete stones within the prominent common bile duct.
Physical Exam
Physical Exam
Cardiology: Normal Sinus Rhythm
Pulmonary: Clear
GI: Soft, Non Distended, Non Tender and Normal Bowel Sounds
[2024-07-06] MEDS: SEROQUEL 12.5 MG PO (21:54)
[2024-07-06] MEDS: SENOKOT 17.2 MG PO (21:56)
[2024-07-07 03:18] VITALS: BP 170/62
[2024-07-07 06:05] VITALS: BMI 27.9
[2024-07-07 06:50] LABS: Hematocrit 34.3 % (37.0-47.0); Hemoglobin 11.4 g/dL (12.0-16.0); Mean Corp Hgb Conc. 33.2 g/dL (33.0-37.0); Mean Corpuscular Hgb 30.6 pg (27.0-31.0); Mean Corpuscular Volume 92.2 fL (81.0-99.0); Platelet Count 174 10^3/uL (130-400); Red Blood Cell Count 3.72 10^6/uL (4.20-5.40); Red Cell Dist. Width 13.3 % (11.5-14.5); White Blood Cell Count 5.5 10^3/uL (4.8-10.8)
[2024-07-07 07:45] LABS: ALT (SGPT) 27 U/L (0-35); AST (SGOT) 28 U/L (14-36); Albumin 3.5 g/dl (3.5-5.0); Alkaline Phosphatase 94 U/L (38-126); Blood Urea Nitrogen 27 mg/dl (7-17); Calcium 9.3 mg/dl (8.4-10.2); Carbon Dioxide 29 mmol/L (22-30); Chloride 99 mmol/L (98-107); Estimated Creatinine Clearance 33 ml/min; Glucose 117 mg/dl (70-99); Potassium 4.7 mmol/L (3.5-5.1); Sodium 135 mmol/L (135-145); Total Bilirubin 0.7 mg/dl (0.2-1.3); Total Protein 5.9 g/dl (6.3-8.2); eGFR 48.63
[2024-07-07 07:53] VITALS: BP 172/63
[2024-07-07] MEDS: RANEXA EXTENDED RELEASE 500 MG PO (09:13)
[2024-07-07] MEDS: BUSPAR 10 MG PO (09:14)
[2024-07-07] MEDS: ZOLOFT 100 MG PO (09:14)
[2024-07-07] MEDS: ASPIR LOW (ENTERIC COATED) 81 MG PO (09:14)
[2024-07-07] MEDS: PLAVIX 75 MG PO (09:14)
[2024-07-07] MEDS: TOPROL XL 50 MG PO (09:14)
[2024-07-07] MEDS: HEPARIN 5000 UNITS SC ×2 (09:16→15:53)
[2024-07-07] MEDS: ZOFRAN 4 MG IV (09:27)
[2024-07-07] MEDS: ROCEPHIN 1000 MG IV (09:46)
[2024-07-07] MEDS: STERILE WATER FOR INJECTION 10 ML IV (09:46)
--- NOTE | 2024-07-07 09:48 | CM ---
Addendum entered by Apple Palacios 07/07/24 16:37:
[facility]

Addendum entered by Apple Palacios 07/07/24 16:29:
Sent updated clinicals to [facility]. In addition to VN, PT, OT, home services need to include Speech Therapy
CM spoke with [facility] communication coordinator; reported that they will be able to visit the patient on Wednesday
at bedside; IMM benefit explained; form signed @ 1615
Plan: Discharge to home with [facility]
Addendum entered by Apple Palacios 07/07/24 16:07:
Per Attending, patient is stable for discharge
Plan: discharge to home with Home Health; referral sent and accepted to [facility]
Addendum entered by Apple Palacios 07/07/24 11:21:
[facility] accepted referral; Agency reported that patient was last seen by them in 2022
Original Note:
Anticipated DC is 24-48 hours
CM spoke w/ via phone; CM explained that PT recommended that go to a care home facility when she is stable for discharge
reported that his 's preference is going home with [facility] services; referral sent via [facility]
[2024-07-07 11:04] VITALS: BP 175/72
[2024-07-07 15:13] VITALS: BP 149/61
--- NOTE | 2024-07-07 15:44 | W.PN.HOSP.TC ---
Addendum entered and electronically signed by Nino Jaimes MD 07/09/24 16:19:
[id number]
Addendum entered and electronically signed by Nino Jaimes MD 07/07/24 16:36:
dc on cefdinir to complete 5 days
Suspect tiny nonhemorrhagic acute/subacute infarct in the right temporoparietal lobe. - Cont ASA, Plavix, statin - no change - Neurology aware and agrees
BM regimen
F/u pcp, neurology, gi outpt
Original Note:
Today's Communication/Plan
-
abx
mri brain
statin, dapt
Assessment / Plan
Assessment / Plan
Physical Exam
General: NAD, AMS
HEENT: Moist mucous membranes and PERRLA
Respiratory: Clear; No Wheezes, Rales or Rhonchi
Cardiac: S1/S2, Regular Rhythm and Murmur (II/ JOI)
GI: Soft, Non Distended, Normal Bowel Sounds and Other (Pos tenderness epigastric and RUQ areas. No rebound. Pos BS.)
Musculoskeletal: No Clubbing, No Cyanosis and Other (R > L LE edema.)
A/P: Patient is an 89y F with PMH significant for complicated migraine, ASCVD and prior cholecystectomy who presents to ED for evaluation of speech abnormality, confusion and distress.
Acute metabolic encephalopathy
� Suspect secondary #UTI, EColi
� Start ceftriaxone
�appreciate neurology consult
- Follow neurologic exam for any changes / focality.
- PT / OT / Speech evaluations.
�MRI brain -to ensure aphasia is not related to cva - informed Neuro
- Continue current med regimen for ASCVD including DAPT, etc. - would not change
-start back statin
#UTI, EColi
- Continue ceftriaxone
CBD Stones / Sludge
- MRCP with no dilation of the CBD
- GI consult for additional recommendations.
ASCVD
Benign Hypertension
- Stable. No chest pain or dyspnea reported.
- BP elevated on initial arrival - likely due to pain - much better after pain control / morphine.
- Continue current CV med regimen including DAPT, etc.
CKD III
- Stable. Renal function at / near known baseline.
- Follow for any changes.
Anxiety / Depression
- Stable. Continue current medications - adjust as needed once formal med rec completed.
Hyponatremia
� Mild
� Continue to monitor
DVT Prophylaxis: HSQ
Code Status: Full
Anticipated Discharge: Within 24 hours
Subjective/Interval History
-
Date of Service: July 07, 2024
patient still has some confusion/aphasia with migraine
Objective Data
-
Labs:
Laboratory Results
07/07/24
06:01
WBC 5.5
Hgb 11.4 L
Hct 34.3 L
Plt Count 174
Sodium 135
Potassium 4.7
Chloride 99
Carbon Dioxide 29
BUN 27 H
Creatinine 1.1 H
Glucose 117 H
Calcium 9.3
Total Bilirubin 0.7
AST 28
ALT 27
Alkaline Phosphatase 94
Vital Signs:
Vital Signs
Temp Pulse Resp BP Pulse Ox
97.3 F 64 16 149/61 94
07/07/24 15:13 07/07/24 15:13 07/07/24 15:13 07/07/24 15:13 07/07/24 15:13
I&O
07/06/24 07/07/24 07/08/24
06:59 06:59 06:59
Intake Total 420 / 420 480 / 480
Output Total 300 / 300
Balance 120 / 120 480 / 480
Review of Systems
-
History Source: Patient
All other systems: Not reviewed unless documented
Data Reviewed
-
CT Scan: Report Reviewed by me
MRI: Report Reviewed by me
Labs: Labs Reviewed by me
[2024-07-07] MEDS: TYLENOL 650 MG PO (15:53)
--- NOTE | 2024-07-07 16:06 | PTOTSP ---
Speech Language Pathology
Pt seen for speech/language evaluations. Mild dysarthria noted, but pt was 100% intelligible in both known and unknown contexts. Language evaluated via the Quick Aphasia Battery (QAB), form 1. Pt with an overall score of 7.80, indicative of
overall mild deficits. reports some confusion related to UTI and baseline intermittent aphasia related to migraines. Unsure what is related to the above vs CVA.
Pt also seen for dysphagia tx. P.O. trials of regular solids and thin liquids provided. Adequate mastication, bolus formation, and A-P transit noted with no oral residue. No overt signs of aspiration. Pt denied any globus sensation with P.O.
trials but reported intermittent globus sensation in upper chest with meds and solids.
Recommend:
(1) Continue regular solids/thin liquids
(2) General aspiration precautions
(3) Meds as tolerated
(4) Consider GI as OP
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 Further dysphagia services not indicated.
--- NOTE | 2024-07-07 16:41 | W.DS.TRANS ---
DC Summary - Leader Writer
-
Discharge Instructions:
Discharge Diagnosis/Procedures UTI
Suspect tiny nonhemorrhagic acute/subacute
infarct in the right temporoparietal lobe.
Diet Low Cholesterol,Low Fat
Activity As tolerated
Blood Work cbc and bmp within 1 week
Instructions:
Stand-Alone Forms:
Changes to Home Medications: Yes
Discharge Medications:
DC Medications w/original date entered in [employer]
acetaminophen 500 mg tablet (Tylenol Extra Strength) 500 mg PO BID 01/27/19
clopidogrel 75 mg tablet 75 mg PO DAILY #1 tab 02/02/19
atorvastatin 40 mg tablet 40 mg PO QPM 02/06/24
buspirone 10 mg tablet 10 mg PO BID 02/06/24
ezetimibe 10 mg tablet (Zetia) 10 mg PO QPM 02/06/24
famotidine 20 mg tablet 20 mg PO BID 02/06/24
furosemide 20 mg tablet (Lasix) 20 mg PO DAILYPRN PRN fluid retention 02/06/24
nitroglycerin 0.4 mg sublingual tablet 0.4 mg sublingual [id number] PRN chest pain 02/06/24
prochlorperazine maleate 5 mg tablet 5 mg PO TIDPRN PRN nausea/migraine 02/06/24
ranolazine 500 mg tablet,extended release,12 hr 500 mg PO BID 02/06/24
aluminum hydrox-magnesium carb 95 mg-358 mg/15 mL oral suspension 15 ml PO DAILYPRN PRN heart burn/ acid reflux 07/05/24
amlodipine 5 mg tablet 2.5 mg PO DAILY 07/05/24
aspirin 81 mg tablet,delayed release 81 mg PO DAILY 07/05/24
cholecalciferol (vitamin D3) 25 mcg (1,000 unit) tablet (Vitamin D3) 25 mcg PO DAILY 07/05/24
metoprolol succinate 50 mg tablet,extended release 24 hr 50 mg PO HS 07/05/24
tramadol 50 mg tablet 25 mg PO HSPRN PRN moderate pain/sleep 07/05/24
vitamin B complex 1 tab PO DAILY 07/05/24
bisacodyl 10 mg rectal suppository 10 mg FL DAILYPRN PRN constipation #100 ea 07/07/24
cefdinir 300 mg capsule 300 mg PO Q12H 3 days #6 caps 07/07/24
polyethylene glycol 3350 17 gram oral powder packet 17 g PO DAILY #100 ea 07/07/24
quetiapine 25 mg tablet 12.5 mg (1/2 x 25 mg) PO HS #0 tabs 07/07/24
sennosides 8.6 mg tablet (Masha-monse) 17.2 mg (2 x 8.6 mg) PO HS #360 tabs 07/07/24
sertraline 100 mg tablet 100 mg PO DAILY #0 tabs 07/07/24
Home Medication Changes
bisacodyl 10 mg rectal suppository 10 mg FL DAILYPRN PRN constipation #100 ea 07/07/24
cefdinir 300 mg capsule 300 mg PO Q12H 3 days #6 [facility] 07/07/24
polyethylene glycol 3350 17 gram oral powder packet 17 g PO DAILY #100 ea 07/07/24
quetiapine 25 mg tablet 12.5 mg (1/2 x 25 mg) PO HS #0 tabs 07/07/24
sennosides 8.6 mg tablet (Masha-monse) 17.2 mg (2 x 8.6 mg) PO HS #360 tabs 07/07/24
sertraline 100 mg tablet 100 mg PO DAILY #0 tabs 07/07/24
Pending Results: No
--- NOTE | 2024-07-07 17:27 | W.PN.NEURO.1 ---
Today's Communication / Plan
-
no further workup
Neuro Assessment/Plan
Assessment
most likely confusion and slurred speech due to abdominal discomfort
Brain MRI imaging reviewed with patient and her , showing subacute right temporoparietal stroke
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
Even if she did have a stroke, she should still continue these same meds
Plan
Continue ASA 81, Plavix 75, and Lipitor 40.
no further work up recommended
if she doesn't want an endarterectomy then no need to continue carotid screening
Subjective/Objective
Subjective Data
Date of Service: July 07, 2024
Feels well
this morning she continued having mild word finding difficulty. got an MRI which showed tiny 4mm right temporoparietal stroke
Objective Data
Vital Signs
Temp Pulse Resp BP Pulse Ox
36.3 C 64 16 149/61 94
07/07/24 15:13 07/07/24 15:13 07/07/24 15:13 07/07/24 15:13 07/07/24 15:13
Lab Results
07/07/24 06:01
07/07/24 06:01
Sodium 135 mmol/L (135-145) 07/07/24 06:01
Potassium 4.7 mmol/L (3.5-5.1) 07/07/24 06:01
BUN 27 mg/dl (7-17) H 07/07/24 06:01
Glucose 117 mg/dl (70-99) H 07/07/24 06:01
Calcium 9.3 mg/dl (8.4-10.2) 07/07/24 06:01
LDL Cholesterol, Calc 117 mg/dl 07/06/24 05:56
Patient Allergies
adhesive tape Allergy (Verified 02/01/19 08:02)
Rash
aspirin Allergy (Verified 02/01/19 08:02)
Stomach burning
esomeprazole [From Nexium] Allergy (Verified 02/01/19 08:02)
Unknown
gabapentin Allergy (Verified 02/01/19 08:02)
Stroke-like symptoms
Iodinated Contrast Media Allergy (Verified 02/01/19 08:02)
Stroke-like symptoms
latex Allergy (Verified 07/06/24 17:22)
Rash
nitrofurantoin Allergy (Verified 02/01/19 08:02)
Unknown
nitroglycerin Allergy (Verified 02/01/19 08:02)
Stroke-like symptoms
== END 2024-07-07 17:36 | disposition home health service (06) | DRG 689 ==
LOC: 3 WEST ACU 07:29
PROVIDERS: ADMITTING PHYSICIAN Hospitalist; ATTENDING PHYSICIAN Internal Medicine; CONSULT PHYSICIAN Internal Medicine; CONSULT PHYSICIAN Psychiatry & Neurology Clinical Neurophysiology; EMERGENCY PHYSICIAN Student in an Organized Health Care Education/Training Program
DX: N39.0 Urinary tract infection, site not specified (principal); G93.41 Metabolic encephalopathy; E87.1 Hypo-osmolality and hyponatremia; I62.9 Nontraumatic intracranial hemorrhage, unspecified; I12.9 Hypertensive chronic kidney disease with stage 1 through stage 4 chronic kidney disease, or unspecified chronic kidney disease; I25.10 Atherosclerotic heart disease of native coronary artery without angina pectoris; N18.30 Chronic kidney disease, stage 3 unspecified; F32.A Depression, unspecified; F41.9 Anxiety disorder, unspecified; Z79.82 Long term (current) use of aspirin; K59.00 Constipation, unspecified; Z87.891 Personal history of nicotine dependence; K80.70 Calculus of gallbladder and bile duct without cholecystitis without obstruction; Z85.118 Personal history of other malignant neoplasm of bronchus and lung; Z85.828 Personal history of other malignant neoplasm of skin; Z86.73 Personal history of transient ischemic attack (TIA), and cerebral infarction without residual deficits; Z92.21 Personal history of antineoplastic chemotherapy
CPT/HCPCS: 70450; 70551; 74176; 74183; 80048; 80053; 80061; 81003; 81015; 83036; 83690; 84439; 84443; 85025; 85027; 87077; 87086; 87186; 92523; 92526; 92610; 93005; 96374; 96375; 96376; 97162; 97167; 99291; 99406; A9575

== ENCOUNTER → 2025-01-17 12:57 | Outpatient (REF) | payer OTHER, SELFPAY | LOC: RCS 12:57 | PROVIDERS: ATTENDING PHYSICIAN Nuclear Medicine Nuclear Cardiology; FAMILY PHYSICIAN Family Medicine | DX: I35.0 Nonrheumatic aortic (valve) stenosis (principal) | CPT/HCPCS: 93306 ==

== ENCOUNTER 2025-03-17 07:40 | Emergency (ER) | payer OTHER, SELFPAY ==
[2025-03-17 07:42] VITALS: BP 198/86
--- NOTE | 2025-03-17 08:04 | ED.GENMED ---
History of Present Illness
General
Chief Complaint: Abdominal Symptoms
Source: patient
Exam Limitations: none
Time Seen by Provider: 03/17/25 07:47
History of Present Illness
History of Present Illness:
89-year-old female presents with from home with increased confusion and flank pain. She was just discharged from [facility] yesterday. She was admitted for urinary tract infection. She was given IV antibiotics per the and
discharged on oral antibiotics. Overnight she developed more pain in her flank and increased confusion with irritability. She denies chest pain or shortness of breath. She states she feels off something does not feel right. No reported fever.
Phy Exam
Physical Exam
Physical Exam:
General: Well-appearing female no acute respiratory distress
HEENT: Normal cephalic atraumatic
Heart: Regular rate and rhythm
Lungs: Clear no wheeze
Abdomen soft mildly tender to the right mid abdomen
Extremities: No cyanosis
Course
Orders/Labs/Results
Orders:
Orders
03/17/25 08:02
CT Abd/pelvis W Iv Cont Urgent
Comment:
Reason For Exam: right flank pain, urinary symptoms
0.9% Sodium Chloride 500 ml [Nss] 500 ml IV BOLUS
Ondansetron Injectable [Zofran] 4 mg IV NOW STA
03/17/25 08:45
Complete Blood Count/With Diff Urgent
Comprehensive Metabolic Panel Urgent
Lipase Urgent
Comment: ADD ON
Urinalysis Reflex To Culture Urgent
Date Specimen was Collected: 03/17/25
Time Specimen was Collected: 08:43
Urine Microscopic Reflex Cult Urgent
Urine Culture Urgent
JOLEEN Source: U
Specimen Description:
Date Specimen was Collected: 03/17/25
Time Specimen was Collected: 08:43
03/17/25 09:22
Add On- LAB Urgent
Tests Added?: lipase
Ketorolac [Toradol] 15 mg IV NOW STA
03/17/25 09:23
diazePAM [Valium Injection] 2 mg IV NOW STA
03/17/25 09:46
Diphenhydramine [Benadryl] 50 mg IV NOW STA
Hydrocortisone Sod Succinate [Solu-Cortef] 200 mg IV NOW STA
Abnormal Lab Results
03/17/25
08:45
RBC 3.86 L 10^6/uL
(4.20-5.40)
Hgb 11.7 L g/dL
(12.0-16.0)
Hct 35.4 L %
(37.0-47.0)
Monocytes % 11.3 H %
(1.7-9.3)
BUN 28 H mg/dl
(7-17)
Creatinine 1.3 H mg/dL
(0.6-1.0)
Glucose 107 H mg/dl
(70-99)
AST 41 H U/L
(14-36)
ALT 36 H U/L
(0-35)
Urine Ketones 1+ A
(Negative)
Ur Occult Blood Reflex 1+ A
(Negative)
Leukocyte Esterase Rfl 1+ A
(Negative)
Urine RBC 3-6 A /HPF
(0-2)
Urine Bacteria (Reflex) Few A
(Negative)
Urine Albumin (Reflex) 1+ A
(Neg - Trace)
03/17/25 08:45
03/17/25 08:45
Vital Signs
Initial and Last Documented VS:
Initial Vital Signs
Temp Pulse Resp BP Pulse Ox
97.6 F 72 16 198/86 98
03/17/25 07:42 03/17/25 07:42 03/17/25 07:42 03/17/25 07:42 03/17/25 07:42
Last Documented Vital Signs
Temp Pulse Resp BP Pulse Ox
97.6 F 61 17 155/64 98
03/17/25 07:42 03/17/25 10:30 03/17/25 10:30 03/17/25 10:00 03/17/25 08:05
MDM/Problems Addressed
Differential Diagnosis Includes:
Patient with persistent flank pain increased confusion and emotional instability after discharge from [facility] yesterday for urinary tract infection. states she has been like this in the past after being admitted.
Will recheck labs and urinalysis as well as CT scan given the flank pain.
*Pulse Oximetry
SaO2: 98
Oxygen Mode of Delivery: Room air
Patient hypoxic: no
*Critical Care Note
Total Time (30-74mins, 75-104mins- exclusive of procedures): Not Applicable
Update Note
Update Note:
Workup here without concerning findings. She is feeling better upon reassessment resting comfortably. No obvious active urinary tract infection but she is currently on an antibiotic for this. Labs reviewed otherwise without significant finding.
No indication for admission. Stable for discharge. Patient does want to be discharged.
ED Attending Note
-
Portions of this chart may have been created with voice recognition software.� Occasional wrong word or��sound alike� substitutions may have occurred due to the inherent limitations of voice recognition software.
Discharge Plan
Departure
Patient Disposition: Home (Routine Discharge)
Date of Disposition: 03/17/25
Time of Disposition: 13:06
Patient with high blood pressure during this ER visit?: No
Discharge Problem:
Weakness
Prescriptions:
No Action
acetaminophen [Tylenol Extra Strength] 500 MG tablet
500 mg PO BID
clopidogrel 75 MG tablet
75 mg PO DAILY Qty: 1 0RF
atorvastatin 40 mg Tablet
40 mg PO QPM
prochlorperazine maleate 5 mg Tablet
5 mg PO TIDPRN PRN (Reason: nausea/migraine)
famotidine 20 mg Tablet
20 mg PO BID
buspirone 10 mg Tablet
10 mg PO BID
nitroglycerin 0.4 mg Tablet, Sublingual
0.4 mg SUBLINGUAL [id number] PRN (Reason: chest pain)
furosemide [Lasix] 20 mg Tablet
20 mg PO DAILYPRN PRN (Reason: fluid retention)
ezetimibe [Zetia] 10 mg Tablet
10 mg PO QPM
ranolazine 500 mg Tablet Extended Release 12 Hr
500 mg PO BID
aluminum hydrox-magnesium carb 95-358 mg/15 mL Suspension
15 ml PO DAILYPRN PRN (Reason: heart burn/ acid reflux)
aspirin 81 mg Tablet,Delayed Release (Dr/Ec)
81 mg PO DAILY
metoprolol succinate 50 mg Tablet Extended Release 24 Hr
50 mg PO HS
tramadol 50 mg Tablet
25 mg PO HSPRN PRN (Reason: moderate pain/sleep)
vitamin B complex Tablet Extended Release
1 tab PO DAILY
cholecalciferol (vitamin D3) [Vitamin D3] 25 mcg (1,000 unit) Tablet
25 mcg PO DAILY
amlodipine 5 mg Tablet
2.5 mg PO DAILY
Patient Comments:
07/05/24: amlodipine 5mg daily placed on hold due to low blood pressure and then decrease to 2.5mg dosing as of 07/04/24.
quetiapine 25 mg Tablet
12.5 mg PO HS Qty: 0 0RF
sertraline 100 mg Tablet
100 mg PO DAILY Qty: 0 0RF
bisacodyl 10 mg Suppository
10 mg VT DAILYPRN PRN (Reason: constipation) Qty: 100 0RF
polyethylene glycol 3350 17 gram Powder In Packet
17 g PO DAILY Qty: 100 0RF
sennosides [Masha-monse] 8.6 mg Tablet
17.2 mg PO HS Qty: 360 0RF
cefdinir 300 mg capsule
300 mg PO Q12H 3 Days Qty: 6 0RF
Referrals:
UNKNOWN - PT NOT,INTERVIEWE [Family Provider]
Activity Restrictions/Additional Instructions:
Please continue current medication. As discussed, there is no indication for admission to the hospital. Follow-up with your doctor otherwise
Interventions
Interventions:
*Risk Screen - Suicide Last Done: 03/17/25 07:42
*General Assessment Last Done: 03/17/25 08:05
*Neglect/Abuse Screening Last Done: 03/17/25 07:42
*ED- Fall Risk Assessment Last Done: 03/17/25 08:05
*ED COVID-19 Vaccine History Last Done: 03/17/25 08:05
*ED Influenza Vaccine History Last Done: 03/17/25 08:05
BA-Yomxeu-Xtadbsulkw Assessment Last Done: 03/17/25 09:00
Discharge Date and Time
Print Language: HEBREW
[2025-03-17 08:05] VITALS: BMI 26.8
[2025-03-17] MEDS: ZOFRAN 4 MG IV (08:22)
[2025-03-17] MEDS: NSS 500 IV (08:22)
[2025-03-17 08:56] LABS: Hematocrit 35.4 % (37.0-47.0); Hemoglobin 11.7 g/dL (12.0-16.0); Mean Corp Hgb Conc. 33.1 g/dL (33.0-37.0); Mean Corpuscular Volume 91.7 fL (81.0-99.0); Nucleated Red Blood Cells % 0 %; Platelet Count 194 10^3/uL (130-400); Red Cell Dist. Width 14.2 % (11.5-14.5)
[2025-03-17 08:57] LABS: Urine Character Clear (Clear)
[2025-03-17 09:00] VITALS: BP 150/138
[2025-03-17 09:07] LABS: Urine Urothelial Cell 0-2 /LPF (FEW)
[2025-03-17 09:08] LABS: ALT (SGPT) 36 U/L (0-35); AST (SGOT) 41 U/L (14-36); Albumin 4.0 g/dl (3.5-5.0); Alkaline Phosphatase 91 U/L (38-126); Blood Urea Nitrogen 28 mg/dl (7-17); Calcium 9.5 mg/dl (8.4-10.2); Carbon Dioxide 26 mmol/L (22-30); Chloride 102 mmol/L (98-107); Estimated Creatinine Clearance 26 ml/min; Glucose 107 mg/dl (70-99); Potassium 4.9 mmol/L (3.5-5.1); Sodium 136 mmol/L (135-145); Total Protein 6.6 g/dl (6.3-8.2); eGFR 39.55
[2025-03-17] MEDS: VALIUM INJECTION 2 MG IV (09:30)
[2025-03-17 10:00] VITALS: BP 155/64
[2025-03-17] MEDS: BENADRYL 50 MG IV (10:01)
[2025-03-17] MEDS: SOLU-CORTEF 200 MG IV (10:02)
[2025-03-17 10:45] LABS: Lipase 92 U/L (23-300)
[2025-03-17 11:00] VITALS: BP 195/60
[2025-03-17 12:00] VITALS: BP 197/71
== END 2025-03-17 15:33 | disposition home or self-care (01) ==
LOC: EMR 07:40
PROVIDERS: Physician Assistant; EMERGENCY PHYSICIAN Emergency Medicine
DX: R53.1 Weakness (principal); Z79.02 Long term (current) use of antithrombotics/antiplatelets; Z79.82 Long term (current) use of aspirin
CPT/HCPCS: 99284; 96374; 96375 ×3; 96361; 74177; 80053; 81003; 81015; 83690; 85025; 87086; Q9967

== ENCOUNTER → 2025-04-27 12:57 | Outpatient (REF) | payer OTHER, SELFPAY | LOC: DHVS 12:57 | PROVIDERS: ATTENDING PHYSICIAN Nuclear Medicine Nuclear Cardiology; FAMILY PHYSICIAN Family Medicine | DX: I73.9 Peripheral vascular disease, unspecified (principal) | CPT/HCPCS: 93922; 93925 ==